=== PATIENT | male | born 1985 | race Caucasian/White ===

== ENCOUNTER 2019-12-16 08:25 | Day surgery (SDC) | payer OTHER ==
[~2019-12-16] VITALS: Ht 165.1 cm; Wt 63.5 kg
[~2019-12-16 08:25] MED LIST: FLUO40CA PO; IBUP200C28 PO; LR 1,000 ML IV ONE; PRAZ2CAP PO; ceFAZolin SOD 2 GM in IV 1 EA IV ONE
[2019-12-16] MEDS ORDERED: ONDANSETRON 4MG/2ML VIAL (J2405) As Ordered ONE (09:39)
[2019-12-16] MEDS ORDERED: dexameTHASONE 4 MG/ML 1ML VIAL (J1100) As Ordered ONE ×2 (09:39→09:40)
[2019-12-16] MEDS ORDERED: BUPIVACAINE HCL 0.5% 30 ML VIAL As Ordered ONE ×2 (09:40→09:41)
[2019-12-16] MEDS ORDERED: fentaNYL 100 MCG/2 ML INJECTION (J3010) As Ordered ONE (09:40)
[2019-12-16] MEDS ORDERED: propofoL 500 MG/50 ML VIAL As Ordered ONE (09:40)
[2019-12-16] MEDS ORDERED: MIDAZOLAM INJ 2 MG/2 ML VIAL (J2250) As Ordered ONE (09:40)
[2019-12-16] MEDS ORDERED: LIDOCAINE 2% MDV 20 ML VIAL As Ordered ONE (09:40)
[2019-12-16 11:30] VITALS: BP 148/91
[2019-12-16] MEDS ORDERED: oxyCODONE 5MG TAB PO PRN (11:30)
[2019-12-16] MEDS ORDERED: ONDANSETRON 4MG/2ML VIAL (J2405) IV PRN (11:30)
[2019-12-16] MEDS ORDERED: LR 1,000 ML IV SCH (11:30)
--- NOTE | 2019-12-16 17:30 | RO ---
DATE OF PROCEDURE: 12/16/2019 PREPROCEDURE DIAGNOSIS: Bilateral plantar fasciitis. POSTPROCEDURE DIAGNOSIS: Bilateral plantar fasciitis. OPERATIVE PROCEDURE: Bilateral endoscopic plantar fascia release. SURGEON: Srinivas Pereyra DPM DISPLAY MAKER: None. ANESTHESIA: Monitored anesthesia care with preoperative injection of 30 mL of 1:1 mixture of 1% lidocaine plain and 0.5% Marcaine plain. ESTIMATED BLOOD LOSS: Minimal. MATERIALS: #4-0 nylon. INJECTABLES: 1 mL of Decadron 4 mg per liter on both feet. COMPLICATIONS: None. CONDITION: Stable. Jadon Pemberton is a 34-year-old male who presents to [facility] with complaints of painful plantar fasciitis to both feet. He has undergone numerous conservative treatments without resolution of his pain. He presents today for surgical correction. The patient's side and site were identified and marked in preoperative area. Consent was reviewed and obtained. All risks, complications and alternatives to the procedure were explained to the patient in detail and all questions were answered. DESCRIPTION OF OPERATION: The patient was brought to the operating room and placed on operating room table in supine position. Monitored anesthesia care was delivered by the anesthesia team. Preoperative injection of 30 mL of 1:1 mixture of 1% lidocaine plain and 0.5% Marcaine plain were injected into both feet. Both feet were prepped and draped in normal sterile fashion. A tourniquet was applied to both ankles and inflated at 250 mmHg on both sides. A medial stab incision was made at the medial heel using #15 blade. Hemostat was used to find the inferior margin of the plantar fascia and the trocar was inserted through the medial portal and a lateral portal was created at the lateral aspect of the heel. Trocar was removed leaving the cannula in place. The camera was inserted through the lateral portal and the plantar fascia was visualized. Using the triangle blade, the plantar fascia was released leaving the lateral one-third intact. Following this, the site was irrigated with normal saline. Cannula was removed. The incisions were repaired with #4-0 nylon. 1 mL of Decadron was injected to both feet. Sterile dressing were applied. Tourniquets were deflated. The patient was brought to post anesthesia care unit (PACU), vitals signs stable, neurovascular status intact. He will be weightbearing as tolerated and followup in the office in two days.
== END 2019-12-16 12:11 | disposition home or self-care (01) ==
LOC: M SDC 08:25
PROVIDERS: ATTEND Podiatrist Foot & Ankle Surgery
DX: M72.2 Plantar fascial fibromatosis (principal); K21.9 Gastro-esophageal reflux disease without esophagitis; F41.9 Anxiety disorder, unspecified; F43.10 Post-traumatic stress disorder, unspecified; Z79.899 Other long term (current) drug therapy; Z88.8 Allergy status to other drugs, medicaments and biological substances; F17.218 Nicotine dependence, cigarettes, with other nicotine-induced disorders
CPT/HCPCS: 29893; 97116; J0690; J1100; J2250; J2405; J3010